=== PATIENT | male | born 1990 | race African-American/Black ===

== ENCOUNTER 2016-10-08 06:10 | Emergency (ER) | payer SELFPAY ==
[~2016-10-08] VITALS: Ht 175.3 cm; Wt 70.0 kg
[2016-10-08 06:24] VITALS: BP 133/84; PULSE 71; RESP 14; TEMP 98.2; O2SAT 98
--- NOTE | 2016-10-08 06:59 | PD ---
HPI . right index Chief Complaint: Skin Problem Time Seen by Provider: 06:57 Travel History International Travel<30 days: No Contact w/Intl Traveler<30days: No Traveled to known affect area: No History of Present Illness HPI 26-year-old male here with complaints of right index finger pain and swelling for the past several days. 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 He denies any fever or chills or drainage from this area. He just reports pain with touch to the distal tip of his right index finger. He does not recall the date of his last tetanus. PFSH Past Medical History Medical History: Denies Significant Hx Hiatal Hernia: No Past Surgical History Surgical History: No Previous Surgery Social History Alcohol Use: No Tobacco Use: Yes (2 CIG PER DAY) Substance Use: No (DENIES) Allergies-Medications (Allergen,Severity, Reaction): Coded Allergies: No Known Allergies (Unverified , 10/08/16) Reported Meds & Prescriptions Reported Meds & Active Scripts Active Ibuprofen 800 Mg Tab 800 Mg PO TID Bactrim DS (Sulfamethoxazole-Trimethoprim) 800-160 Mg Tab 1 Tab PO BID Review of Systems General / Constitutional: No: Fever Eyes: No: Visual changes HENT: No: Headaches Cardiovascular: No: Chest Pain or Discomfort Respiratory: No: Shortness of Breath Gastrointestinal: No: Abdominal Pain Genitourinary: No: Dysuria Musculoskeletal: No: Pain Skin: Positive Other (right index finger small abscess ), No Rash Neurologic: No: Weakness Psychiatric: No: Depression Endocrine: No: Polydipsia Hematologic/Lymphatic: No: Easy Bruising Physical Exam Narrative GENERAL: AAO x 3, no acute distress, Well-nourished, well-developed patient. SKIN: Warm and dry. No visible rashes or bruising. Distal tip of right index finger small fluid collection measuring approximately 4 mm with visible purulent matter directly underneath, minimally fluctuant, no significant erythema or temperature variation HEAD: Normocephalic and atraumatic. EYES: No scleral icterus. No injection or drainage. ENT: No nasal drainage noted. Mucous membranes pink. Airway patent. NECK: Supple, trachea midline. No JVD. CARDIOVASCULAR: Regular rate and rhythm without murmurs, gallops, or rubs. RESPIRATORY: Breath sounds equal bilaterally. No accessory muscle use. No rhonchi or rales. GASTROINTESTINAL: Visual inspection normal EXTREMITIES: No cyanosis. All digits of the left hand move normally, right hand all digits move normally except there is some tenderness to the distal tip of the right index finger and some slight edema. There is a small fluid collection present BACK: Nontender without obvious deformity. No CVA tenderness. 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 Data Data Last Documented VS Vital Signs Date Time Temp Pulse Resp B/P Pulse Ox O2 Delivery O2 Flow Rate FiO2 10/08/16 06:24 98.2 71 14 133/84 98 Orders Tetanus/Diphtheria Tox Adult (Tetanus/Di (10/08/16 07:00) Bupivacaine Pf 0.5% Inj (Marcaine Pf 0.5 (10/08/16 07:00) Lidocaine 1% Inj (50 Ml) (Xylocaine 1% I (10/08/16 07:00) Wound Culture And Gram Stain (10/08/16 06:49) MDM Medical Decision Making Medical Screen Exam Complete: Yes Emergency Medical Condition: Yes Medical Record Reviewed: Yes Differential Diagnosis finger abscess, cellulitis, less likely paronychia Narrative Course 26-year-old male here with a small abscess to the distal tip of his right index finger. Patient has given verbal consent for incision and drainage. Tetanus was provided. Patient tolerated without incident. I recommend using antibiotics and keeping his finger clean. We briefly discussed wound care. I discussed signs of worsening infection and when to return to the emergency department. I advised him to return in 48 hours for recheck of this area. Patient verbalized understanding of instructions, questions were answered, and thanked me for their care. I advised them if their condition worsens, please return to the nearest emergency room for further care. Procedures Procedure Narrative After the risks and benefits were discussed the following procedure was performed: right index finger distal tip INCISION AND DRAINAGE OF ABSCESS: The area was prepped and was sterilely draped. A digital block was performed with 1% lidocaine using 6 cc. The area was properly anesthetized. A number 11 scalpel was used to make a 0.6 -cm incision across the area of the abscess. Cultures were obtained. The abscess was drained an irrigated with normal saline. Sterile dressing applied. Patient advised to keep area clean and return in 2 days for a recheck. Diagnosis Primary Impression: Abscess of finger Qualified Code: L02.511 - Abscess of finger, right Patient Instructions: General Instructions Additional Instructions: [place] for signs of worsening infection which include redness, swelling, pus drainage, fever, or streaking. If any of these develop, come to the emergency department immediately. Return to the emergency room in 48 hours for a recheck. Start medications today. Rest, hydrate. Do not change the dressing unless it becomes wet or soiled until wound recheck in 48 hours. You may bathe normally. Do not submerge the wound. Take the antibiotics as they are prescribed, even if your symptoms resolve during the course of treatment. Utilize [id number] pain medications, as described on the label, as needed. Return to the ED in 48 hours for packing removal and wound recheck. Follow-up with your primary care provider in next week. Return to the ED for any urgent or emergent medical condition. Med/Other Pt SpecificInfo: Prescription(s) given Scripts Ibuprofen 800 Mg Goc348 Mg PO TID #21 TAB Prov:Ke Morin MD 10/08/16 Sulfamethoxazole-Trimethoprim (Bactrim DS)800-160 Mg Tab1 Tab PO BID #20 TAB Prov:Ke Morin MD 10/08/16 Disposition: 01 DISCHARGE HOME Condition: Stable Leslye Escalante Oct 08, 2016 06:58
[2016-10-08] MEDS ORDERED: BUPIVACAINE HCL PF 0.5% 10 ML VIAL INFIL ONE (07:00)
[2016-10-08] MEDS ORDERED: TETANUS/DIPHTHERIA TOXOID ADULT 0.5 ML VIAL IM ONE (07:00)
[2016-10-08] MEDS ORDERED: LIDOCAINE HCL 1% 50 ML VIAL INFIL ONE (07:00)
[2016-10-08] MEDS ORDERED: BACT800T5 PO (07:14)
[2016-10-08] MEDS ORDERED: IBUP800T23 PO (07:14)
== END 2016-10-08 07:32 | disposition home or self-care (01) ==
LOC: NEPD 06:10
DX: L02.511 Cutaneous abscess of right hand (principal); B95.61 Methicillin susceptible Staphylococcus aureus infection as the cause of diseases classified elsewhere
CPT/HCPCS: 10060; 86403; 87070; 87186

== ENCOUNTER 2016-10-10 13:28 | Emergency (ER) | payer SELFPAY ==
[~2016-10-10] VITALS: Ht 177.8 cm; Wt 70.0 kg
[~2016-10-10 13:28] MED LIST: BACT800T5 PO; IBUP800T23 PO
[2016-10-10 13:30] VITALS: BP 138/90; PULSE 72; RESP 20; TEMP 98.6; O2SAT 100
== END 2016-10-10 15:54 | disposition left against medical advice (07) ==
LOC: NED 13:28
DX: Z51.89 Encounter for other specified aftercare (principal); Z53.21 Procedure and treatment not carried out due to patient leaving prior to being seen by health care provider
CPT/HCPCS: 99281